=== PATIENT | male | born 1965 | race Two or more races ===

== ENCOUNTER 2024-11-25 15:15 | Emergency (ER) | payer BC ==
[~2024-11-25] VITALS: Ht 177.8 cm; Wt 81.6 kg
[2024-11-25] MEDS ORDERED: CVS OMEPRAZOLE1 EACH PO (16:08)
[2024-11-25] MEDS ORDERED: AMLODIPINE-OLM1 EAC2 PO (16:08)
[2024-11-25] MEDS ORDERED: LIPITOR80 MG PO (16:08)
[2024-11-25] MEDS ORDERED: ZESTRIL2.5 MG (16:08)
[2024-11-25] MEDS ORDERED: FAMOtidine 10 MG/ML (4ML VIAL) IV ONE (16:45)
[2024-11-25] MEDS ORDERED: CEFTRIAXONE SODIUM 1,000 MG VIAL IV ONE (16:45)
[2024-11-25] MEDS ORDERED: KETOROLAC TROMETHAMINE 30 MG VIAL IV ONE (16:45)
[2024-11-25] MEDS ORDERED: TAMSULOSIN HCL 0.4 MG CAP PO ONE ×2 (16:45→16:52)
[2024-11-25] MEDS ORDERED: KETOROLAC TROMETHAMINE 30 MG VIAL ONE (16:51)
[2024-11-25] MEDS ORDERED: FAMOTIDINE/PF 20 MG/2 ML VIAL ONE (16:52)
[2024-11-25] MEDS ORDERED: CEFTRIAXONE SODIUM 1,000 MG VIAL ONE (16:52)
[2024-11-25 17:26] LABS: BASO % 0.4 % (0.1-1.2); HEMATOCRIT 43.3 % (40.1-51.0); HEMOGLOBIN 14.3 g/dL (13.7-17.5); LYMPH # 0.89 (1.18-3.74); LYMPH % 11.3 % (19.3-53.1); MEAN CORPUSCULAR HEMOGLOBIN 27.5 pg (25.6-32.2); MONO # 0.49 (0.24-0.82); MONO % 6.2 % (4.7-12.5); NEUT # 6.46 (1.56-6.13); NEUT % 81.8 % (34.0-71.1); PLATELET COUNT 372 K/uL (163-369); RED CELL DISTRIBUTION WIDTH 13.3 % (11.6-14.4)
[2024-11-25 17:45] LABS: INR 1.02; PARTIAL THROMBOPLASTIN TIME 26.5 SECONDS (22.0-34.0); PROTHROMBIN TIME 11.1 SECONDS (9.0-11.5)
[2024-11-25 18:01] LABS: ALBUMIN 4.5 gm/dL (3.4-5.0); BILIRUBIN TOTAL 0.72 mg/dL (0.3-1.2); CALCIUM 9.8 mg/dL (8.5-10.1); CREATININE SERUM 0.98 mg/dL (0.70-1.30); GFR 78.83; GLOBULINA 3.4 G/DL (2.4-3.5); POTASSIUM 4.86 mEq/L (3.5-5.1); TOTAL PROTEIN 7.9 gm/dL (6.4-8.2)
[2024-11-25] MEDS ORDERED: MORPHINE SULFATE 4 MG/ML VIAL IV ONE (19:00)
[2024-11-25] MEDS ORDERED: ONDANSETRON HCL 2 MG/ML VIAL IV ONE (19:00)
[2024-11-25] MEDS ORDERED: ONDANSETRON HCL 2 MG/ML VIAL ONE (21:13)
[2024-11-25 21:58] LABS: URINE APPEARANCE Clear; URINE BILIRRUBIN Negative (NEGATIVE); URINE BLOOD Moderate; URINE COLOR Yellow; URINE KETONE Trace (NEGATIVE); URINE LEUKOCYTE Negative; URINE NITRATE Negative
[2024-11-25 22:00] LABS: URINE BACTERIA 18.3 uL (0.0-1933); URINE EPITHELIAL CELLS 1.8 uL (0.0-38.8); URINE RBC 437.3 uL (0.0-20.8); URINE WBC 11.7 uL (0.0-23.2)
[2024-11-25 22:06] LABS: URINE GLUCOSE 500 MG/DL (NEGATIVE); URINE PROTEIN 100 (NEGATIVE)
[2024-11-25] MEDS ORDERED: TAMS0.4C PO (22:21)
== END 2024-11-25 22:59 | disposition home or self-care (01) ==
LOC: ER 18:26
PROVIDERS: General Practice
DX: R10.9 Unspecified abdominal pain (principal); I10 Essential (primary) hypertension